=== PATIENT | female | born 1970 | race Caucasian/White ===

== ENCOUNTER 2016-09-14 12:34 | Emergency (ER) | payer BC ==
[~2016-09-14] VITALS: Ht 162.6 cm; Wt 60.5 kg
[2016-09-14 12:37] VITALS: Ht 162.6 cm; Wt 60.5 kg
[2016-09-14 13:28] LABS: URINE BLOOD (Dip) POC Trace-lysed (NEGATIVE)
--- NOTE | 2016-09-14 15:32 | RADRPT ---
PROCEDURE: US Pelvis CLINICAL INDICATION: bilateral pelvic pain. TECHNIQUE: Multiple sonographic images of the pelvis were obtained utilizing a transabdominal and endovaginal technique. The images were reviewed on a PACS workstation. COMPARISON: None. LMP: 09/09/2016 FINDINGS: The uterus is retroverted and measures 8.6 x 4.6 x 5.8 cm. The endometrial echo complex measures 10 mm in thickness. No discrete lesion is seen. The right ovary measures 2.6 x 1.7 x 2.5 cm. The left ovary measures 3.0 x 1.7 x 1.9 cm. There is no rmal vascular flow in both ovaries. There is a 2.1 cm cystic lesion with somewhat irregular borders and mild low level internal echoes i n the right ovary which may be a hemorrhagic or corpus luteal cyst. It is not associated with signi ficant vascular flow. No significant pelvic free fluid is identified. IMPRESSION: 2.1 cm complex cystic lesion in the right ovary may be a hemorrhagic or corpus luteal cyst. Otherwise, unremarkable pelvic ultrasound. RPTAT: EE Physician Rafael Date Time Electronically viewed and signed by Physician Rafael on 09/14/2016 15:31 /
[2016-09-14] MEDS ORDERED: HYDR-906 PO (15:51)
--- NOTE | 2016-09-14 16:07 | ERA ---
ER Documentation Chief Complaint Date/Time DATE: 09/14/16 TIME: 16:04 Chief Complaint VAGINAL PAIN X FEW DAYS HPI Patient is a 46-year-old female presenting with her complaining of vaginal pain patient speaks a foreign language and the is the wastewater operator and seems reliable. Patient's at the vaginal pain for 2 days and has not taken any medications to relieve the pain. Patient denies any discharge , bleeding, dysuria, hematuria, diarrhea, constipation, worsening factors, or chest pain. Patient's pain has been constant over the past few days. Patient has never had symptoms like this before. ROS All systems reviewed and are negative except as per history of present illness. Medications Home Meds Active Scripts Hydrocodone/Acetaminophen (Jacobson 5-325 Tablet) 1 Each Tablet, 1 TAB PO Q6H Y for PAIN, #20 TAB Prov:CESAR GAN PA-C 09/14/16 Allergies Allergies: Coded Allergies: No Known Allergy (Unverified , 09/14/16) PMhx/Soc Medical and Surgical Hx: pt denies Medical Hx History of Surgery: Yes (C SECTION) Anesthesia Reaction: No Hx Neurological Disorder: No Hx Respiratory Disorders: No Hx Cardiac Disorders: No Hx Psychiatric Problems: No Hx Miscellaneous Medical Probl: No Hx Alcohol Use: No Hx Substance Use: No Hx Tobacco Use: Yes Smoking Status: Current every day smoker Physical Exam Vitals Vital Signs Date Time Temp Pulse Resp B/P Pulse Ox O2 Delivery O2 Flow Rate FiO2 09/14/16 12:37 98.2 89 18 109/62 99 Physical Exam Const: Well-appearing [age]-year-old female presenting with her . Head: Atraumatic Eyes: Normal Conjunctiva ENT: Normal External Ears, Nose and Mouth. Neck: Full range of motion..~ No meningismus. Resp: Clear to auscultation bilaterally Cardio: Regular rate and rhythm, no murmurs Abd: Soft, non tender, non distended. Normal bowel sounds. Mild suprapubic tenderness. Skin: No petechiae or rashes Back: No midline or flank tenderness Ext: No cyanosis, or edema Neur: Awake and alert Psych: Normal Mood and Affect Results 24 hrs Laboratory Tests Test 09/14/16 13:27 Bedside Urine pH (LAB) 7.0 Bedside Urine Protein (LAB) Negative Bedside Urine Glucose (UA) Negative Bedside Urine Ketones (LAB) Negative Bedside Urine Blood Trace-lysed Bedside Urine Nitrite (LAB) Negative Bedside Urine Leukocyte Esterase (L Negative Procedures/MDM Patient's presenting of vaginal pain that spans from her left to her right is equal in severity bilaterally at a 7 out of 10. Patient has suprapubic tenderness. Went ahead and got a urinalysis which was negative except for trace lysed hematuria. Patient denies any discharge or worsening factors of vaginal pain. Went ahead and got a ultrasound to evaluate the ovaries for suspected cyst. Ultrasound revealed a 2.5 cm labial versus hemorrhagic cyst in the left ovary. Went ahead and educated the patient on ovarian cyst. Recommend that she follow-up with a closer on. Will discharge with a short course of Jacobson for the current pain. Educated her on the use of narcotics. I spoke with my attending and he agrees with my assessment and plan. Departure Diagnosis: Primary Impression: Ovarian cyst Qualified Code: N83.201 - Cyst of right ovary Condition: Stable Patient Instructions: What Are Ovarian Cysts? Additional Instructions: Return to emergency department if symptoms change or worsen CESAR GAN PA-C Sep 14, 2016 16:07
[2016-09-14 16:25] VITALS: BP 97/55; PULSE 81; RESP 20; TEMP 98.1
== END 2016-09-14 16:25 | disposition home or self-care (01) ==
LOC: FTE 12:34
DX: N83.201 Unspecified ovarian cyst, right side (principal); F17.210 Nicotine dependence, cigarettes, uncomplicated
CPT/HCPCS: 76830; 76856; 81003